=== PATIENT | male | born 2000 | race African-American/Black ===

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

== ENCOUNTER 2022-05-13 13:01 | Emergency (ER) | payer SELFPAY ==
[2022-05-13 13:08] VITALS: BP 119/78; PULSE 82; TEMP 97.8; BMI 17.6
== END 2022-05-13 13:58 | disposition home or self-care (01) ==
LOC: JER 13:01
DX: L02.411 Cutaneous abscess of right axilla (principal)
CPT/HCPCS: 99283-25